=== PATIENT | male | born 1980 | race Caucasian/White ===

== ENCOUNTER 2018-03-23 12:15 | Emergency (ER) | payer OTHER ==
[2018-03-23 12:34] VITALS: BP 112/84
--- NOTE | 2018-03-23 13:09 | EDPHY ---
H & P Stated Complaint: SORES ON SCALP FOR 1 YEAR Time Seen by Provider: 03/23/18 12:49 HPI/ROS: Chief complaint: Scalp lesions History of present illness: This is a 37-year-old male who presents to the emergency department for scalp lesions. He has had the lesions for the last year. He states they are sometimes itchy, sometimes painful. They will swell up and occasional burst releasing blood and pus. He has seen doctors on multiple occasions who recommended better hygiene. He denies fevers, he denies lesions to other parts of the body. - Personal History Current Tetanus Diphtheria and Acellular Pertussis (TDAP): Unsure - Medical/Surgical History Hx Asthma: No Hx Chronic Respiratory Disease: No Hx Diabetes: No Hx Cardiac Disease: No Hx Renal Disease: No Hx Cirrhosis: No Hx Alcoholism: No Hx HIV/AIDS: No Hx Splenectomy or Spleen Trauma: No Other PMH: DENIES - Social History Smoking Status: Never smoked - Physical Exam Exam: General: Alert, nontoxic. Skin: Patient has small erythematous and slightly edematous lesions to his scalp, some of which are crusted over. No discrete drainable abscesses are noted. No lesions on the rest of the body noted. No parasites or sequelae such as lice or lice eggs are noted in the hair. Constitutional: Initial Vital Signs Temperature (C) 36.8 C 03/23/18 12:31 Heart Rate 86 03/23/18 12:31 Respiratory Rate 17 03/23/18 12:31 Blood Pressure 112/84 H 03/23/18 12:31 O2 Sat (%) 94 03/23/18 12:31 O2 Delivery Mode Room Air Allergies/Adverse Reactions: No Known Allergies Allergy (Unverified 03/23/18 12:31) Home Medications: Medication Instructions Recorded Doxycycline Hyclate [Vibramycin 100 mg PO BID 10 Days cap 03/23/18 100 MG (*)] Medical Decision Making ED Course/Re-evaluation: Patient seen under the supervision of my secondary supervising physician Dr. Stanton Gabriel. Patient presents for scalp lesions. This does appear to be most consistent with a folliculitis. I will start him on antibiotics. I have discussed scalp care including the use of shampoo such as Selsun Blue or head and shoulders. He is to follow up with a primary care doctor or international manager for recheck. Return precautions are given. The patient voiced understanding and agreement with plan. Differential Diagnosis: Included but not limited to folliculitis, tinea capitis, cellulitis, parasitic infection such as lice Departure - Departure Disposition: Home, Routine, Self-Care Clinical Impression: Folliculitis Condition: Good Instructions: Folliculitis (ED) Additional Instructions: Follow-up with a primary care doctor or international manager for continued evaluation and care If symptoms worsen or new symptoms develop return to the emergency department for recheck Referrals: NONE *PRIMARY CARE P,. [Primary Care Provider] - As per Instructions [facility],. [Clinic] - As per Instructions [facility] [Outside] - As per Instructions Prescriptions: Doxycycline Hyclate [Vibramycin 100 MG (*)] 100 mg PO BID 10 Days cap
== END 2018-03-23 13:10 | disposition home or self-care (01) ==
DX: L73.9 Follicular disorder, unspecified (principal)